=== PATIENT | female | born 1995 | race Caucasian/White ===

== ENCOUNTER 2017-08-19 13:44 | Emergency (ER) | payer OTHER ==
--- NOTE | 2017-08-19 14:12 | PHYS DOC ---
Past History Past Medical History: Asthma Additional Past Medical Histor: endometriosis Smoking: Non-smoker Adult General Chief Complaint Chief Complaint: COUGH HPI HPI Patient is a 22-year-old female presents to the emergency department for evaluation. She states that for the past week, she has had a cough productive of some greenish sputum. She has had some mild nasal congestion as well as a mild sore throat. She has not had any fevers or chills, or any significant shortness of breath. Other than some soreness related to coughing she has not had any pain. Her boyfriend has been sick with similar symptoms as well. She has not had any voice changes, hoarseness, or stridor. [id number] cough suppressants have helped improve her symptoms slightly. She went to an urgent care was given Tessalon Perles and told she had a viral illness, but the Tessalon Perles did not help her symptoms. Other than as stated above, there are no alleviating or exacerbating factors to her symptoms. Review of Systems Review of Systems Constitutional: Denies fever or chills [] Eyes: Denies change in visual acuity, redness, or eye pain [] HENT: Reports congestion and sore throat [] Respiratory: As per history of present illness [] Cardiovascular:The patient denies any shortness of breath, chest pain, palpitations, or orthopnea [] GI: Denies abdominal pain, nausea, vomiting, bloody stools or diarrhea [] : Denies . [] Neurologic: Denies headache, focal weakness or sensory changes [] Physical Exam Physical Exam PHYSICAL EXAM: CONSTITUTIONAL: Well developed, well nourished HEAD: normocephalic, atraumatic EENT: PERRL, EOMI. Conjunctivae normal color, sclerae non-icteric; moist mucous membranes. Pharynx is nonerythematous. NECK: Supple, non-tender; no meningismus. LUNGS: Lungs CTA, breathing even and unlabored. Normal air movement. HEART: Regular rate and rhythm, no murmur CHEST: No deformity; non-tender ABDOMEN: The abdomen is soft, and non-tender, no masses or bruits. EXTREM: Normal ROM; no deformity, no calf tenderness. Normal pulses palpable in all extremities. There is no pedal edema. SKIN: No rash; no diaphoresis NEURO: Alert; normal speech and cognition; CN's grossly intact; strength grossly intact without focal deficit. BACK: No CVA TTP. EKG EKG [] Radiology/Procedures Radiology/Procedures [] Course & Med Decision Making Course & Med Decision Making Pertinent Labs and Imaging studies reviewed. (See chart for details) [The strep test negative PROCEDURE: CHEST PA & LATERAL Chest radiograph 08/19/2017 2:00 PM INDICATION: Cough for 8 days COMPARISON: None available TECHNIQUE: Frontal and lateral views of the chest are provided. FINDINGS: The cardiomediastinal silhouette is within normal limits. There are no pleural effusions. There is no pulmonary vascular congestion. There is no pneumothorax. The lungs are clear. No significant osseous abnormality is identified. IMPRESSION: No acute cardiopulmonary process.] 2:35 PM:Patient remains stable. I discussed test results, expectant management, the need for close follow-up, and return precautions. Dragon Disclaimer Dragon Disclaimer This electronic medical record was generated, in whole or in part, using a voice recognition dictation system. Departure Departure: Impression: Primary Impression: Cough Additional Impression: Upper respiratory infection Disposition: HOME, SELF-CARE Condition: STABLE Referrals: PCP,NO (PCP) Patient Instructions: Cough, Adult, Upper Respiratory Infection, Adult Problem Qualifiers YAIMA ESQUIVEL MD Aug 19, 2017 14:12
--- NOTE | 2017-08-19 14:27 | RAD ---
Chest radiograph 08/19/2017 2:00 PM INDICATION: Cough for 8 days COMPARISON: None available TECHNIQUE: Frontal and lateral views of the chest are provided. FINDINGS: The cardiomediastinal silhouette is within normal limits. There are no pleural effusions. There is no pulmonary vascular congestion. There is no pneumothorax. The lungs are clear. No significant osseous abnormality is identified. IMPRESSION: No acute cardiopulmonary process. Electronically signed by: Jane Al MD (08/19/2017 2:23 PM) [id number]
[2017-08-19 14:52] VITALS: BP 112/70
== END 2017-08-19 14:52 | disposition home or self-care (01) ==
LOC: ER 13:44
DX: J06.9 Acute upper respiratory infection, unspecified (principal); J45.909 Unspecified asthma, uncomplicated
CPT/HCPCS: 71046; 87070; 87880; 99285-25